=== PATIENT | female | born 1970 | race Asian ===

== ENCOUNTER 2021-08-25 08:41 | Emergency (ER) | payer BC, SELFPAY ==
[2021-08-25 09:25] LABS: Abs Immature Grans 0.05 10^3/uL (0.0-0.06); Absolute Basophil Count 0.03 10^3/uL (0.0-0.2); Absolute Lymphocyte Count 1.63 10^3/uL (1.2-3.4); Basophils % 0.2; Eosinophils % 0.7; HCT 49.6 % (36.0-46.0); HGB 16.4 g/dL (11.2-15.7); Immature Grans % 0.4; Lymphocytes % 11.5; MCHC 33.1 % (32.0-36.0); MCV 90.8 fL (80-95); MPV 9.6 fL (8.0-11.0); Monocytes % 3.5; Neutrophils % 83.7; Nucleated RBC 0 %; Platelet Count 347 10^3/uL (130-400); RBC 5.46 10^6/uL (3.93-5.22); RDW 12.6 % (11.7-14.6); RDW-SD 41.7 fL; WBC 14.16 10^3/uL (4.4-10.8)
[2021-08-25 09:29] LABS: Absolute Neutrophil Count 11.85 10^3/uL (1.2-6.7)
[2021-08-25] MEDS: Normal Saline 1,000 ML 1000 ML IV (09:31)
--- NOTE | 2021-08-25 09:36 | ED.GENADUL_ITS ---
Discharge Plan Disposition Patient Disposition: HOME Condition: Stable Discharge Details Clinical Impression: Foodborne gastroenteritis Primary Care Provider: Unknown,Unknown ED Provider: Neri Villa Discharge Instructions Instructions: Gastroenteritis (ED) Additional Instructions: It is very important that you stay well-hydrated. Feel free to return for any new or significant worsening of symptoms which include bloody vomit, blood in your stool, mucus in your stool, severe abdominal pain or any further concerns. Otherwise if not improving in the next week please follow-up with your primary care provider for reassessment and further testing as needed. Discharge Data Discharge Date/Time-TO BE ENTERED AT DEPARTURE: 08/25/21 10:25 Medical Decision Making Patient presenting to the emergency department for chief complaint of diarrhea. Patient states that yesterday evening she had chicken wings and then around 5:30 AM started having sudden onset of symptoms. Other household member who also had chicken is having similar symptoms and also presenting to the emergency department. No one else in the home ate the same food and are otherwise asymptomatic. Physical exam is unremarkable for any acute findings. No McBurney's point tenderness, no abdominal tenderness to palpation, and otherwise active bowel sounds. We will plan to check labs for concern of dehydration due to significant vomiting and diarrhea. Will give IV fluids pending results. Reviewed results that show elevated WBC and RBC which is concerning for concentration and possible dehydration which fits picture. Patient does have elevated neutrophils. CMP is reassuring with only slight elevation in glucose and alk phos, and has elevation of anion gap, BUN, and protein consistent again with dehydration. Electrolyte's are otherwise nonworrisome. Patient was reassessed after fluid completion states slight improvement of symptoms. Given patient's story I do feel that this is high likelihood of foodborne illness and that conservative management is appropriate at this point. I do feel that outpatient management is appropriate and encourage hydration along with conservative management of symptoms.. Thoroughly discussed return and follow-up precautions prior to discharge. After discussion of diagnosis and plan of care patient has no further needs, questions, or concerns and states clear understanding to return to the emergency department for any worsening symptoms. HPI General Mode of arrival: ambulatory . Date/Time Provider Initiated Documentation: 08/25/21 09:06 . Limitations to Documentation: no limitations . Information obtained by: patient . History of Present Illness 51 year old F presents to the emergency department with the chief complaint of Beth rrhea/abdominal cramping, described as moderate, with intensity rated at 4. Quality is described as aching, and is localized to the abdomen. Patient reports no radiation. Patient started experiencing this hour(s) (4) and it has been constant. improves with No relieving factors improve symptom(s), Eating worsens symptoms . Patient notes loss of appetite. Patient did receive the following treatments prior to arrival, none General Stated Complaint: Nausea/Vomit/Diar MARCELLE: 3 Review of Systems Constitutional Constitutional: Reports chills, Denies fever(s) and Reports poor appetite Cardiovascular Cardiovascular: Denies chest pain and Denies dyspnea Respiratory Respiratory: Denies cough and Denies dyspnea Gastrointestinal Gastrointestinal: Reports as per HPI, Reports abdominal pain, Denies melena, Denies hematochezia, Denies change in bowel habits, Denies constipation, Reports cramping, Reports diarrhea, Denies nausea, Denies vomiting and Denies hematemesis Genitourinary Genitourinary: Denies hematuria, Denies urinary incontinence, Denies urinary hesitancy and Denies urinary urgency Integumentary/Breasts Skin/Breast: Denies rash PFSH All Active Problems (Updated 08/25/21 @ 10:15 by Neri Villa NP) Foodborne gastroenteritis (Acute) Social History Smoking/Tobacco Use Status: Former Tobacco Use Tobacco: How many years used: 4 Smoking risk assessment performed?: Yes Alcohol Intake: current Alcohol Intake frequency: a few times a month Alcohol type: wine Drug use: Never Substance use type: does not use Do you feel safe at home: Yes Do you feel safe in your relationship?: Yes Exam Const General: cooperative Orientation: alert, awake and oriented x3 Resp Effort & Inspection: normal respiratory effort and able to speak in complete sentences Auscultation: clear to auscultation bilaterally Cardio Rate: regular rate Rhythm: regular rhythm Heart Sounds: S1 normal and S2 normal GI Palpation: soft, no hepatosplenomegaly, not firm, no guarding, no masses, no pulsatile masses, not rigid, no splenomegaly and nontender Auscultation: hyperactive bowel sounds Back/Spine/Pelvis Back: no CVA tenderness Neuro General: patient alert, patient awake, patient oriented x3, gait normal and moves all extremities Course Vital Signs Vital signs: Respiratory Effort 08/25/21 08:58 Oxygen Delivery Method Room Air 08/25/21 08:51 Oxygen Flow Rate 0 08/25/21 08:51 Lab/Test Results Lab/Test Results: Laboratory Tests Range/Units 08/25/21 09:00 WBC (4.4-10.8) 10^3/uL 14.16 H RBC (3.93-5.22) 10^6/uL 5.46 H Hgb (11.2-15.7) g/dL 16.4 H Hct (36.0-46.0) % 49.6 H MCV (80-95) fL 90.8 MCH (27.0-33.0) pg 30.0 MCHC (32.0-36.0) % 33.1 RDW (11.7-14.6) % 12.6 Plt Count (130-400) 10^3/uL 347 MPV (8.0-11.0) fL 9.6 Immature Gran % 0.4 Neutrophils % 83.7 Lymphocytes % 11.5 Monocytes % 3.5 Eosinophils % 0.7 Basophils % 0.2 Nucleated RBC % % 0 Absolute Neutrophils (1.2-6.7) 10^3/uL 11.85 H Absolute Lymphocytes (1.2-3.4) 10^3/uL 1.63 Absolute Monocytes (0.1-0.8) 10^3/uL 0.50 Absolute Eosinophils (0.0-0.7) 10^3/uL 0.10 Absolute Basophils (0.0-0.2) 10^3/uL 0.03
[2021-08-25 09:41] LABS: ALT 33 U/L (14-59); AST 23 U/L (15-37); Albumin 4.5 g/dL (3.4-5.0); Alkaline Phosphatase 153 U/L (46-116); Anion Gap 12.7 mmol/L (3-11); BUN 20 mg/dL (7-18); Bilirubin, Total 0.6 mg/dL (0.2-1.0); CO2 25.3 mmol/L (21.0-32.0); Calcium 9.5 mg/dL (8.5-10.1); Chloride 104 mmol/L (98-107); Estimated GFR 58.93 (mL/min/1.73m2); Glucose 109 mg/dL (74-106); Lipase 89 U/L (73-393); Magnesium 2.2 mg/dL (1.8-2.4); Potassium 3.6 mmol/L (3.5-5.1); Sodium 142 mmol/L (136-145)
[2021-08-25 10:18] LABS: C Diff PCR Negative (Negative)
[2021-08-26 20:57] LABS: Campylobacter PCR Negative (Negative); Salmonella PCR Negative (Negative); Shiga Toxin PCR Negative (Negative); Shigella/Enteroinvasive Ecoli Negative (Negative)
== END 2021-08-25 10:25 | disposition home or self-care (01) ==
PROVIDERS: Emergency Provider Nurse Practitioner Family
DX: A05.9 Bacterial foodborne intoxication, unspecified (principal); D72.829 Elevated white blood cell count, unspecified
CPT/HCPCS: 36415; 80053; 83690; 87493; 87505; 96360; 99284; 82710; 83735; 85025; 99283